=== PATIENT | male | born 1970 | race Native Hawaiian/Other Pacific Islander ===

== ENCOUNTER 2022-10-13 16:20 | Emergency (ER) | payer OTHER ==
[~2022-10-13] VITALS: Ht 177.8 cm; Wt 109.3 kg
[2022-10-13 16:29] VITALS: TEMP 97.3
[2022-10-13 17:54] VITALS: BP 155/91
== END 2022-10-13 17:54 | disposition home or self-care (01) ==
LOC: ED 16:20
DX: B02.9 Zoster without complications (principal); I16.0 Hypertensive urgency; I50.9 Heart failure, unspecified; Z87.891 Personal history of nicotine dependence
CPT/HCPCS: 96372; 99283; J1885; J2930